=== PATIENT | female | born 1970 | race African-American/Black ===

== ENCOUNTER 2016-05-31 13:48 | Emergency (ER) | payer OTHER ==
[~2016-05-31] VITALS: Ht 165.1 cm; Wt 90.7 kg
[~2016-05-31 13:48] MED LIST: ALAWAY10 ML OP; ALBUTEROL SULF8.5 GM INH; AZITHROMYCIN250 MG ORAL; DOXYCYCLINE MO100 MG ORAL; MONISTAT 744 GM VG; NASONEX17 GM NASAL; NKM; PREDNISONE20 MG ORAL; PROMETHAZINE-D118 ML ORAL
[2016-05-31 14:07] VITALS: BP 102/73
[2016-05-31] MEDS ORDERED: MULTIVITAMINS1 EA14 PO (14:13)
[2016-05-31] MEDS ORDERED: VITAMIN D1000 UNI1 ORAL (14:13)
[2016-05-31] MEDS ORDERED: AMOXICILLIN500 MG ORAL (14:53)
[2016-05-31] MEDS ORDERED: NORCO 5-325 TA1 EACH ORAL (14:53)
[2016-05-31] MEDS ORDERED: PREDNISONE20 MG ORAL (14:53)
[2016-05-31] MEDS ORDERED: IBUPROFEN600 MG ORAL (14:53)
[2016-05-31 15:10] VITALS: BP 110/74
--- NOTE | 2016-06-02 08:09 | Emergency Room Report ---
History of Present Illness General Chief Complaint: Headache Source: Patient Present Illness HPI Patient presents with complaints of headache and pressure behind the eyes Patient reports that she does get sinus discomfort and also has pressure in the for had an axillary area Ongoing for the past 3-4 days Denies any vomiting denies any visual change denies any neck pain or photophobia Pain is 3/10 diffuse also for head Patient also complained of a left lower back pain radiation to the buttock and leg area denies any fall or trauma she does report significantly increased recently Allergies: Coded Allergies: No Known Allergies (Unverified , 01/17/14) Patient History Past Medical History: see triage record Pertinent Family History: none Last Menstrual Period: 05/07/2016 Reviewed Nursing Documentation: PMH: Agreed, PSxH: Agreed Nursing Documentation-PMH Past Medical History: No Stated History Hx Cardiac Problems: No - sinus problem Hx COPD: No - BRONCHITIS Review of Systems All Other Systems: negative except mentioned in HPI Physical Exam Vital Signs Date Time Temp Pulse Resp B/P Pulse Ox O2 Delivery O2 Flow Rate FiO2 05/31/16 14:07 97.9 77 14 102/73 99 Room Air Sp02 EP Interpretation: reviewed, normal General Appearance: well appearing, no apparent distress Head: normocephalic, atraumatic Eyes: bilateral eye EOMI, bilateral eye PERRL ENT: hearing grossly normal, normal pharynx, TMs + canals normal, uvula midline , other - There is some discomfort on palpation of the frontal forehead, also discomfort in the maxillary region Neck: full range of motion, supple, no meningismus, no bony tend Respiratory: lungs clear, normal breath sounds, no rhonchi, no respiratory distress, no retraction, no accessory muscle use Cardiovascular #1: normal peripheral pulses, regular rate, rhythm, no edema, no gallop, no JVD, no murmur Gastrointestinal: normal bowel sounds, non tender, soft, no mass, no organomegaly, non-distended, no guarding, no hernia, no pulsatile mass, no rebound Genitourinary: no CVA tenderness Musculoskeletal: other - Discomfort is palpated in the left posterior superior iliac crest, no midline step-off is Neurologic: oriented x3, responsive, air defense specialist III-XII nml as tested, motor strength/ tone normal, sensory intact Psychiatric: mood/affect normal Skin: normal color, no rash, warm/dry, palpation normal Lymphatic: normal inspection, no adenopathy Medical Decision Making Diagnostic Impression: Primary Impression: Headache Additional Impressions: sinusitis Sciatic leg pain ER Course Patient's examination reveals likely sinusitis there were multiple other differentials including but not limited to neurological, neurosurgical, infectious pathology consideration Patient's exam otherwise is stable patient has appropriate lower back discomfort appears to be in line with sciatic discomfort and the patient will have initial conservative outpatient trial Last Vital Signs Date Time Temp Pulse Resp B/P Pulse Ox O2 Delivery O2 Flow Rate FiO2 05/31/16 15:10 76 18 110/74 100 Room Air 05/31/16 14:07 97.9 Status: improved Disposition: HOME, SELF-CARE Condition: Improved Scripts Prednisone* (PREDNISONE*) 20 Mg Tablet 20 MG ORAL BID, #8 TAB Prov: RAQUEL BERGERON D.O. 05/31/16 Amoxicillin* (AMOXIL*) 500 Mg Capsule 500 MG ORAL THREE TIMES A DAY, #21 CAP Prov: RAQUEL BERGERON.Jeffrey 05/31/16 Hydrocodone Bit/Acetaminophen 5-325* (NORCO 5-325*) 1 Each Tablet 1 TAB ORAL Q6H Y for For Pain, #10 TAB 0 Refills Prov: RAQUEL BERGERON D.O. 05/31/16 Ibuprofen* (MOTRIN*) 600 Mg Tablet 600 MG ORAL Q8H Y for For Pain, #30 TAB 0 Refills Prov: RAQUEL BERGERON.Alem. 05/31/16 Referrals: MARCEL HICKEY,REFERRING (PCP) Patient Instructions: Sinus Headache, Sinusitis, Adult Additional Instructions: Patient is provided with the discharge instructions notified to follow up with primary doctor in the next 2-3 days otherwise return to the er with any worsening symptoms. Please note that this report is being documented using [employer] technology. This can lead to erroneous entry secondary to incorrect interpretation by the dictating instrument. RAQUEL BERGERON D.O. Jun 02, 2016 08:09
== END 2016-05-31 15:10 | disposition home or self-care (01) ==
LOC: EMR 14:35
DX: J32.9 Chronic sinusitis, unspecified (principal); M54.30 Sciatica, unspecified side
CPT/HCPCS: 99284

== ENCOUNTER 2016-06-27 15:41 | Emergency (ER) | payer OTHER ==
[~2016-06-27] VITALS: Ht 165.1 cm; Wt 90.7 kg
[~2016-06-27 15:41] MED LIST changes: +AMOXICILLIN500 MG ORAL; +IBUPROFEN600 MG ORAL; +MULTIVITAMINS1 EA14 PO; +NORCO 5-325 TA1 EACH ORAL; +VITAMIN D1000 UNI1 ORAL
[2016-06-27 16:22] VITALS: BP 101/73
[2016-06-27] MEDS ORDERED: Ipratropium 0.02% Inh Soln 2.5ml UD HHN ONE (16:30)
[2016-06-27] MEDS ORDERED: Albuterol ud Inhalation HHN ONE (16:30)
[2016-06-27] MEDS ORDERED: Meclizine 25mg tab ORAL ONE (16:30)
[2016-06-27] MEDS ORDERED: PREDNISONE20 MG ORAL (17:33)
[2016-06-27] MEDS ORDERED: VERTICALM25 MG ORAL (17:33)
[2016-06-27] MEDS ORDERED: AUGMENTIN 875-1 EAC1 ORAL (17:33)
[2016-06-27 17:44] VITALS: BP 91/64
--- NOTE | 2016-06-27 19:24 | Emergency Room Report ---
History of Present Illness General Chief Complaint: Dizziness Source: Patient Present Illness HPI 46-year-old female presents to ED for evaluation. Complaining of dizziness with sinus pain and shortness of breath x2 weeks. States she's been here twice for similar presentation. Was prescribed antibiotics on last visit and states symptoms have improved somewhat. States the dizziness is room spinning sensation, worse with sitting to standing, vice versa and head turning suddenly. Denies nausea and vomiting. Notes sinus pressure to the forehead. /10. Nonradiating. No aggravating or leading factors. denies cough. Denies fevers or chills. Notes chest tightness and shortness of breath. Notes history of bronchitis. Denies smoking or drug use. Denies any other associated symptoms Allergies: Coded Allergies: No Known Allergies (Unverified , 01/17/14) Patient History Past Medical History: none Past Surgical History: none Pertinent Family History: none Social History: Denies: alcohol use, drug use, smoking Last Menstrual Period: 06/04/16 Now: No Immunizations: UTD Reviewed Nursing Documentation: PMH: Agreed, PSxH: Agreed Nursing Documentation-PMH Past Medical History: No Stated History Hx Cardiac Problems: No - sinus problem Hx COPD: No - BRONCHITIS Review of Systems All Other Systems: negative except mentioned in HPI Physical Exam Vital Signs Date Time Temp Pulse Resp B/P Pulse Ox O2 Delivery O2 Flow Rate FiO2 06/27/16 15:53 77 16 97 Room Air 06/27/16 16:22 101/73 06/27/16 16:35 96 Sp02 EP Interpretation: reviewed, normal General Appearance: no apparent distress, alert, GCS 15, non-toxic Head: normocephalic, atraumatic Eyes: bilateral eye PERRL, bilateral eye normal inspection ENT: normal ENT inspection Neck: normal inspection Respiratory: chest non-tender, lungs clear, normal breath sounds, speaking full sentences Cardiovascular #1: regular rate, rhythm, no edema Gastrointestinal: normal bowel sounds, non tender, soft, non-distended, no guarding, no rebound Rectal: deferred Genitourinary: no CVA tenderness Musculoskeletal: normal inspection Neurologic: alert, oriented x3, responsive, motor strength/tone normal, sensory intact, speech normal Psychiatric: judgement/insight normal, memory normal, mood/affect normal, no suicidal/homicidal ideation Skin: normal color, no rash, warm/dry, well hydrated Lymphatic: normal inspection Medical Decision Making Diagnostic Impression: Primary Impression: Bronchitis Additional Impressions: BPV (benign positional vertigo) Qualified Codes: H81.10 - Benign paroxysmal vertigo, unspecified ear Sinusitis Qualified Codes: J01.10 - Acute frontal sinusitis, unspecified ER Course 46-year-old female presents to ED complaining of dizziness, sinus pressure and cough with shortness of breath Differential-sinusitis, intracranial bleed, bronchitis, pneumonia Patient placed on stretcher. After initial history and physical I ordered meclizine, breathing treatments and CT head CT head shows no acute evidence of injury. On reassessment patient's his breathing has improved, dizziness has improved as well Patient will be subsequently discharged home. Antibiotics for presumed sinusitis. Recommend followup with ENT if sinus pressure process Diagnosis-bronchitis, BPV, sinusitis Stable discharged to home with prescription for prednisone, Augmentin, meclizine. Followup with PMD. Return to ED symptoms recur worse CT/MRI/US Diagnostic Results CT/MRI/US Diagnostic Results : Imaging Test Ordered: CT head Impression no acute process Last Vital Signs Date Time Temp Pulse Resp B/P Pulse Ox O2 Delivery O2 Flow Rate FiO2 06/27/16 17:44 82 13 91/64 100 Room Air 06/27/16 17:00 21 Status: improved Disposition: HOME, SELF-CARE Condition: Stable Scripts Meclizine Hcl* (VERTICALM*) 25 Mg Tablet 25 MG ORAL THREE TIMES A DAY, #20 TAB Prov: MASTER KING M.D. 06/27/16 Prednisone* (PREDNISONE*) 20 Mg Tablet 40 MG ORAL DAILY, #10 TAB Prov: MASTER KING M.D. 06/27/16 Amoxicillin/Potassium Clav 875-125* (AUGMENTIN 875-125 TABLET*) 1 Each Tablet 1 TAB ORAL TWICE A DAY, #14 TAB Prov: MASTER KING M.D. 06/27/16 Patient Instructions: MASTER Villagomez M.D. Jun 27, 2016 19:24
--- NOTE | 2016-06-28 08:35 | Diagnostic Imaging Report ---
Indication: DIZZY Technique: Continuous helical CT scanning of the head was performed without intravenous contrast material. Axial and coronal 5 mm sections were generated. Radiation dose was minimized using automated exposure control Dose: Total Dose Length Product - DLP [address] Dose Index - CTDIvol(s) 70.38 mGy. Comparison: None Findings: The ventricular system is normal in size and configuration. There is no shift of midline structures. No abnormal extra-axial fluid collections are noted. There is no evidence of intracerebral bleeding. No other abnormal high or low density areas are noted within the brain. Intact calvarium. The orbits are unremarkable. There is minimal sphenoid sinus disease Impression: Normal CT scan of the head without contrast material. Incidental finding minimal sphenoid sinus disease This agrees with the preliminary interpretation provided overnight by Dr. nOeill The CT scanner at [facility] is accredited by the [employer] and the scans are performed using protocols designed to limit radiation exposure to as low as reasonably achievable to attain images of sufficient resolution adequate for diagnostic evaluation.
== END 2016-06-27 17:48 | disposition home or self-care (01) ==
LOC: EMR 16:38
DX: J40 Bronchitis, not specified as acute or chronic (principal); H81.10 Benign paroxysmal vertigo, unspecified ear; J32.3 Chronic sphenoidal sinusitis
CPT/HCPCS: 70450; 94640; 94664; 99284